=== PATIENT | male | born 1960 | race African-American/Black ===

== ENCOUNTER 2017-04-09 12:40 | Emergency (ER) | payer OTHER ==
--- NOTE | ~2017-04-09 | US115 ---
[facility] A Service of [facility] [place] & [facility] RADIOLOGY TEXT RESULTS PATIENT: MIKA STEPHEN LOCATION: [facility] : 56 UNIT #: [id number] AGE: [address]: Jess Sy MD SEX: M ORDER DR: [id number] [facility] [address] [place], [place] [address] [id number] E MR#: [id number] Acc #: [id number] NAME: MIKA STEPHEN. : 1960 SEX: M STUDY DATE/TIME: 04/09/2017 13:08 UNIT: [facility] ROOM: STUDY DESCRIPTION: US Scrotum and Contents Attending Physician: Jess Sy M.D. Ordering Physician: Jess Sy M.D. Primary Care Physician: Nico Bettencourt M.D. MEDICAL IMAGING REPORT This report is preliminary unless electronic signature is present EXAM Scrotal ultrasound HISTORY Tenderness left testis for 1 week. TECHNIQUE Real-time ultrasonography of the scrotal contents performed. Green-scale and color Doppler interrogation utilized. COMPARISON STUDIES No prior scrotal ultrasound for comparison. FINDINGS The right testis measures 3.49 cm x 4.05 cm x 1.83 cm, normal in contour and overall echotexture. There are some scattered microcalcifications in the right testis. There is no indication of testicular mass lesion. Arterial and venous flow present in the right testis. Small right hydrocele. Right epididymis unremarkable. The left testis measures 3.16 cm x 3.66 cm x 1.92 cm. Scattered microcalcifications, more numerous than on the right. Echotexture otherwise unremarkable. No mass lesion. Arterial and venous flow noted. Trace amount of left-sided hydrocele. The left epididymis is unremarkable. IMPRESSION 1. Arterial and venous flow in bilateral testes. Testes are normal in size and contour. No testicular mass lesion. Microcalcifications in the bilateral testes, slightly more numerous on the left than right. Please correlate with the patient's urologic history and risk factors. Consider follow-up ultrasound in 1 year. Testicular monthly self examination recommended. 2. Very small bilateral hydroceles. [facility] A Service of [facility] [place] & [facility] RADIOLOGY TEXT RESULTS PATIENT: MI[facility] STEPHEN [id number] 56 UNIT #: [id number] AGE: [address]: Jess Sy MD SEX: M ORDER DR: 3. Bilateral epididymis unremarkable. Dictated by... William Horn M.D. THIS IS AN ELECTRONICALLY VERIFIED REPORT William Horn M.D. at 04/10/2017 12:11 PM DEXTER/ross TD: 04/09/2017 19:32 JOB #: [id number] MEDICAL IMAGING REPORT Page 1 of 1 COPY
[~2017-04-09 12:40] MED LIST: LISINOPRIL-HCTZ1 T19 PO; SEPTRA DS PO
[2017-04-09 13:33] LABS: URINE SOURCE CLEAN CATCH
[2017-04-09 13:39] LABS: URINE APPEARANCE CLOUDY; URINE BILIRUBIN NEG (NEG); URINE BLOOD NEG (NEG); URINE COLOR YELLOW; URINE GLUCOSE NEG (NEG); URINE KETONE NEG (NEG); URINE LEUKOCYTE ESTERASE TRACE (NEG); URINE NITRATE NEG (NEG); URINE PROTEIN TRACE (NEG); URINE UROBILINOGEN 0.2 MG/DL (NEG)
[2017-04-09 13:41] LABS: URBCS1 AUWI 0-2 /[HPF] (0-2); URINE BACTERIA AUWI NEG (NEGATIVE); URINE SQUAMOUS EPITHELIAL CELL NONE SEEN /[HPF]; UWBCS1 AUWI 0-2 (0-5)
[2017-04-09 13:44] LABS: CULTURE INDICATED? NO
[2017-04-11 23:37] LABS: CHLAMYDIA TRACH Not Detected (Not Detected); N GONOR Not Detected (Not Detected)
== END 2017-04-09 15:20 | disposition home or self-care (01) ==
LOC: CED 12:40
PROVIDERS: Emergency Medicine
DX: N50.812 Left testicular pain (principal); I10 Essential (primary) hypertension; F17.210 Nicotine dependence, cigarettes, uncomplicated
CPT/HCPCS: 76870; 81003; 87491; 87591; 93976; 99284